=== PATIENT | female | born 1965 | race African-American/Black ===

== ENCOUNTER 2017-07-23 00:48 | Emergency (ER) | payer MEDICARE, OTHER ==
[~2017-07-23] VITALS: Ht 165.1 cm; Wt 77.0 kg
[~2017-07-23 00:48] MED LIST: FLUT1DIS INH; ISOS30TA6 PO; LORA2TAB95 PO; MONT10TA21 PO; OXYC-23 PO; TIOT18CA3 INH
[2017-07-23] MEDS ORDERED: IPRATROPIUM BROMIDE (0.02%) 0.5MG/2.5ML NEB HHN STA (00:56)
[2017-07-23] MEDS ORDERED: ALBUTEROL (0.083%) 2.5MG/3ML NEB HHN STA (00:56)
[2017-07-23] MEDS ORDERED: METHYLPREDNISOLONE SOD SUCC 125 MG/2 ML VIAL IV STA (00:56)
[2017-07-23] MEDS ORDERED: MAGNESIUM 2 G PREMIX 50 ML IV STA (00:56)
[2017-07-23 01:26] LABS: BASOPHILS % 0.8 % (0.0-2.0); EOSINOPHILS % 2.6 % (0.0-5.0); HEMATOCRIT. 42.1 % (36.0-48.0); HEMOGLOBIN. 13.5 g/dL (12.0-16.0); LYMPHOCYTES % 54.6 % (20.0-50.0); MEAN CORPUSCULAR HEMOGLOBIN 28.1 pg (28.0-32.0); MEAN CORPUSCULAR VOLUME 87.7 fL (81.0-99.0); MEAN PLATELET VOLUME 7.3 fl (7.4-10.4); PLATELET 385 x1000/uL (130-400); RED BLOOD CELL COUNT 4.81 mill/uL (4.2-5.4); RED CELL DISTRIBUTION WIDTH 16.2 % (11.6-14.6)
[2017-07-23 01:29] LABS: CHLORIDE 105 mEq/L (98-107)
[2017-07-23 01:30] LABS: INR 1.2
[2017-07-23] MEDS ORDERED: KETOROLAC 30MG/ML VIAL IV ONE (02:45)
[2017-07-23 03:20] VITALS: BP 105/71
== END 2017-07-23 04:48 | disposition home or self-care (01) ==
LOC: ER 00:48
DX: J44.1 Chronic obstructive pulmonary disease with (acute) exacerbation (principal); Z88.1 Allergy status to other antibiotic agents; Z98.890 Other specified postprocedural states; Z79.899 Other long term (current) drug therapy
CPT/HCPCS: 36415; 71045; 80053; 83880; 84484; 85025; 85610; 93005; 94644; 96365; 96366; 96375; 99285; J1885; J2930; J3475; J7611

== ENCOUNTER 2019-04-11 21:13 | Emergency (ER) | payer OTHER ==
[~2019-04-11] VITALS: Ht 162.6 cm; Wt 55.0 kg
[2019-04-11] MEDS ORDERED: PREDNISONE 20MG TABLET PO STA (23:47)
[2019-04-12] MEDS ORDERED: KETOROLAC 30MG/ML VIAL IM ONE
[2019-04-12] MEDS ORDERED: LEVOFLOXACIN 500MG TABLET PO ONE
[2019-04-12] MEDS ORDERED: MORPHINE SULFATE 10 MG/ML CPJ IM ONE
[2019-04-12] MEDS ORDERED: DIAZEPAM 2 MG TABLET PO ONE
[2019-04-12] MEDS ORDERED: IPRATROPIUM/ALBUTEROL 0.5-3(2.5)MG/3ML NEB HHN ONE
[2019-04-12 04:41] VITALS: BP 143/91
== END 2019-04-12 04:42 | disposition home or self-care (01) ==
LOC: ER 21:13
DX: S40.8 Other superficial injuries of upper arm (principal); J44.9 Chronic obstructive pulmonary disease, unspecified; M62.838 Other muscle spasm; I99.9 Unspecified disorder of circulatory system; Z88.1 Allergy status to other antibiotic agents; Z79.899 Other long term (current) drug therapy; W49.09XA Other specified item causing external constriction, initial encounter; Y93.89 Activity, other specified; Y92.89 Other specified places as the place of occurrence of the external cause; Y99.8 Other external cause status
CPT/HCPCS: 71045; 73060; 94640; 96372; 99285; J1885; J2270; J7512